=== PATIENT | female | born 1995 | race Caucasian/White ===

== ENCOUNTER 2019-09-21 14:46 | Emergency (ER) | payer MEDICAID ==
[~2019-09-21] VITALS: Ht 170.2 cm; Wt 93.0 kg
[2019-09-21 14:58] VITALS: BP_SYST 105; BP_SYST 143; BP_DIAS 57; BP_DIAS 89
--- NOTE | 2019-09-21 15:13 | NUR ---
PT TO JUAN STATON
--- NOTE | 2019-09-21 15:15 | NUR ---
Jose De Jesus conklin in [facility] - 09/21/19 at 1516 by TOM SNEHA CARDOZO PT
--- NOTE | 2019-09-21 15:15 | NUR ---
FLU SWAB COLLECTED
--- NOTE | 2019-09-21 15:46 | NUR ---
PT AMBULATED TO ER CHAIR B
--- NOTE | 2019-09-21 16:02 | NUR ---
C/O DRY COUGH, H/A AND BODY ACHES, F/C, RHINORRHEA, NONBLOODY DIARRHEA X LAST NIGHT TOOK MOTRIN AT 1400. NAUSEA WITHOUT VOMITING. DID NOT RECEIVE FLU VACCINE THIS SEASON. HAS BEEN AROUND FAMILY MEMBER WHO HAD THE FLU. PAIN 8/10 AT THIS TIME, CONSTANT, THROBBING AT HEAD AND GENERALIZED BODY ACHES. PT APPEARS FATIGUED. PMH- EPILEPTIC
--- NOTE | 2019-09-21 16:09 | NUR ---
SNEHA FONSECA EVALUATING PT
--- NOTE | 2019-09-21 16:20 | NUR ---
Patient discharged with v/s stable. Written and verbal after care instructions given and explained. Patient alert, oriented and verbalized understanding of instructions. Ambulatory with steady gait. All questions addressed prior to discharge. ID band removed. Patient advised to follow up with PMD. Rx of BROMFED-DM AND TAMIFLU given. Patient educated on indication of medication including possible reaction and side effects. Opportunity to ask questions provided and answered.
[2019-09-21 16:21] VITALS: BP 105/57
== END 2019-09-21 16:20 | disposition home or self-care (01) ==
LOC: MED 14:46
DX: J06.9 Acute upper respiratory infection, unspecified (principal)
CPT/HCPCS: 87804; 99283